=== PATIENT | male | born 1985 | race Caucasian/White ===

== ENCOUNTER 2017-12-16 10:12 | Emergency (ER) | payer BC ==
[~2017-12-16] VITALS: Ht 185.4 cm; Wt 127.0 kg
[~2017-12-16 10:12] MED LIST: IBUPROFEN 800800 M1 PO; METFORMIN; NOHOMEMEDICATIONS; NORCO 7.5-3251 EACH PO; PREDNISONE 10 M10 MG PO; TRIAMCINOLONE A15 G1 TP
[2017-12-16 10:19] VITALS: BP 138/95
[2017-12-16] MEDS ORDERED: CELEXA20 MG PO (10:33)
[2017-12-16] MEDS ORDERED: ATIVAN1 MG PO (10:33)
== END 2017-12-16 10:44 | disposition home or self-care (01) ==
LOC: M.ERS 10:12
DX: F41.9 Anxiety disorder, unspecified (principal); E11.9 Type 2 diabetes mellitus without complications; E03.9 Hypothyroidism, unspecified; Z90.89 Acquired absence of other organs